=== PATIENT | female | born 1955 | race Caucasian/White ===

== ENCOUNTER → 2023-08-08 06:36 | Day surgery (SDC) | payer MEDICARE, BC, SELFPAY | LOC: GI 06:36 | PROVIDERS: ATTENDING PHYSICIAN Internal Medicine Gastroenterology | DX: D12.2 Benign neoplasm of ascending colon (principal); K64.8 Other hemorrhoids; K57.30 Diverticulosis of large intestine without perforation or abscess without bleeding; K29.70 Gastritis, unspecified, without bleeding; K44.9 Diaphragmatic hernia without obstruction or gangrene; K31.7 Polyp of stomach and duodenum; K31.89 Other diseases of stomach and duodenum; R12 Heartburn; Z87.19 Personal history of other diseases of the digestive system | CPT/HCPCS: 45380; 43239; 88305; 88342 ==

== ENCOUNTER 2023-11-30 06:42 | Day surgery (SDC) | payer MEDICARE, BC, SELFPAY ==
[2023-11-30] VITALS (10 sets, daily range): BP systolic 128–155; BP diastolic 71–87; BMI 20.7
== END 2023-11-30 16:54 | disposition home or self-care (01) ==
LOC: SDS 06:42
PROVIDERS: ATTENDING PHYSICIAN Internal Medicine Gastroenterology
DX: D13.2 Benign neoplasm of duodenum (principal); D13.5 Benign neoplasm of extrahepatic bile ducts; K83.8 Other specified diseases of biliary tract
CPT/HCPCS: 43274; 43254; 88305; 74330; 76000; C1769; C2617; C2625

== ENCOUNTER 2023-12-22 09:43 | Day surgery (SDC) | payer MEDICARE, BC, SELFPAY ==
[2023-12-22 09:42] VITALS: BMI 20.5
[2023-12-22 09:45] VITALS: BMI 20.5
[2023-12-22 09:46] VITALS: BP 118/61
[2023-12-22 11:03] VITALS: BP 112/68
[2023-12-22 11:15] VITALS: BP 115/64
[2023-12-22 11:30] VITALS: BP 114/83
== END 2023-12-22 11:40 | disposition home or self-care (01) ==
LOC: GI 09:43
PROVIDERS: ATTENDING PHYSICIAN Internal Medicine Gastroenterology
DX: Z46.59 Encounter for fitting and adjustment of other gastrointestinal appliance and device (principal); K31.89 Other diseases of stomach and duodenum
CPT/HCPCS: 43247

== ENCOUNTER 2024-05-16 06:44 | Day surgery (SDC) | payer MEDICARE, BC, SELFPAY ==
[2024-05-16 11:14] VITALS: BMI 20.7
[2024-05-16 11:15] VITALS: BMI 20.7
[2024-05-16 11:22] VITALS: BP 103/65
[2024-05-16 14:24] VITALS: BP 94/75
[2024-05-16 14:31] VITALS: BP 122/74
[2024-05-16 14:45] VITALS: BP 128/64
== END 2024-05-16 16:28 | disposition home or self-care (01) ==
LOC: GI 06:44
PROVIDERS: ATTENDING PHYSICIAN Internal Medicine Gastroenterology
DX: K31.89 Other diseases of stomach and duodenum (principal); Z13.810 Encounter for screening for upper gastrointestinal disorder; Z98.890 Other specified postprocedural states
CPT/HCPCS: 43239; 88305